=== PATIENT | female | born 1950 | race Caucasian/White ===

== ENCOUNTER → 2023-09-28 15:07 | Outpatient (REF) | payer MEDICARE, SELFPAY | LOC: WDC 15:07 | PROVIDERS: ATTENDING PHYSICIAN Internal Medicine | DX: Z12.31 Encounter for screening mammogram for malignant neoplasm of breast (principal) | CPT/HCPCS: 77063; 77067 ==

== ENCOUNTER → 2024-10-20 13:53 | Outpatient (REF) | payer MEDICARE, SELFPAY | LOC: WDC 13:53 | PROVIDERS: ATTENDING PHYSICIAN Internal Medicine | DX: Z12.31 Encounter for screening mammogram for malignant neoplasm of breast (principal); M85.80 Other specified disorders of bone density and structure, unspecified site; Z78.0 Asymptomatic menopausal state | CPT/HCPCS: 77063; 77067 ==

== ENCOUNTER 2025-04-12 12:37 | Outpatient (RCR) | payer MEDICARE, SELFPAY | END 2025-04-12 23:59 | disposition home or self-care (01) | LOC: RPT 12:37 | PROVIDERS: ATTENDING PHYSICIAN Orthopaedic Surgery; FAMILY PHYSICIAN Internal Medicine | DX: Z47.1 Aftercare following joint replacement surgery (principal); Z73.6 Limitation of activities due to disability; M62.81 Muscle weakness (generalized); M25.511 Pain in right shoulder; M25.512 Pain in left shoulder; Z96.611 Presence of right artificial shoulder joint | CPT/HCPCS: 97110; 97161 ==